=== PATIENT | female | born 1990 | race Caucasian/White ===

== ENCOUNTER 2020-06-02 18:05 | Inpatient (IN) ==
[2020-06-02] MEDS ORDERED: XYLOCAINE 1%/SOD BICARB 20 ML VIAL INFIL ONE (18:50)
--- NOTE | 2020-06-02 19:18 | Emergency Department Note ---
History of Present Illness General Chief complaint: Knee Injury/Pain Stated complaint: left knee swelling Time Seen by Provider: 06/02/20 18:29 Source: patient Mode of arrival: ambulatory Limitations: no limitations History of Present Illness Provider complaint: Left knee swelling Maximum Pain Intensity: 5 This is a 39-year-old female who presents to the ED with a chief complaint of left knee swelling and increased warmth for the past 4 days. She states that she first noticed that on Monday. She was seen Monday at the urgent care and a Lyme test was performed and she was started on doxycycline. The patient did report a tick bite to the lateral aspect of the knee about 5 months ago. The patient states that she did have a fever the past couple of days. She denies any other specific complaints at this time. She did state that she went for a long walk last week. Home Medications Home Medications Medication Instructions Recorded Confirmed Type Chaga 1 tab PO 3XWK 06/02/20 06/02/20 History echinacea 0 mg PO Q OTHER DAY 06/02/20 06/02/20 History ibuprofen 400 mg PO Q6H PRN 06/02/20 06/02/20 History vitamin A 0 unit PO 3XWK 06/02/20 06/02/20 History Allergies Allergy/AdvReac Type Severity Reaction Status Date / Time No Known Allergies Allergy Verified 06/02/20 19:35 Past Med/Surg History Medical History No pertinent past medical history Surgical History No history of previous surgery Family History Father Myocardial infarction, Onset Age: 58 Hypertension Dyslipidemia Mother Afib Aneurysm, Onset Age: 50 SAH with bleed Hypertension Dyslipidemia Grandmother (Maternal) Afib Aneurysm Grandmother (Paternal) Afib Aneurysm Denies family history of Ovarian cancer Prostate cancer Breast cancer Colorectal cancer Social History (System 06/02/20 @ 19:35 by Renuka Alvarez) Smoking Status: Never smoker Age Started Using Tobacco: 22; Age Quit Using Tobacco: 25; Cigarettes Per Day: 2; Hx Alcohol Use: Yes Alcohol type: beer and wine Hx Substance Use: No Preferred Language: Maori Communication Ability: Effective Visual Impairment: No Limitations Hearing Ability: Normal marital status: Current Living Situation: Spouse current occupational status: employed 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[employer] Feels Safe at Home: Yes Childhood Exposure to Second-Hand Smoke: No Dental Care, Regularly: Yes Physical Activity Frequency: 3-4 Times per Week Seatbelt Use: always Sunscreen Use: Yes Do you think of yourself as: straight/heterosexual Review of Systems A total of 10 systems reviewed and were otherwise negative Physical Exam Vital Signs Vital Signs - 24 hr 06/02/20 18:08 06/02/20 20:09 06/02/20 21:26 Temperature 37.3 C Temperature Source Oral Pulse Rate 115 H Pulse Rate [Finger] 77 74 Respiratory Rate 18 16 16 Respiratory Depth Normal Normal Blood Pressure 132/73 Blood Pressure [Right Arm] 109/60 109/65 Blood Pressure Mean 92 Blood Pressure Mean [Right Arm] 76 79 Pulse Oximetry 100 97 96 Oxygen Delivery Method Room Air Room Air Sepsis Recent Fever Within 48 Hours No Sepsis New/Unexplained Change in Mental Status No Sepsis Action Taken by Nursing No Action Required 06/02/20 22:06 Temperature Temperature Source Pulse Rate Pulse Rate [Finger] 78 Respiratory Rate 16 Respiratory Depth Normal Blood Pressure Blood Pressure [Right Arm] 110/62 Blood Pressure Mean Blood Pressure Mean [Right Arm] 78 Pulse Oximetry 98 Oxygen Delivery Method Room Air Sepsis Recent Fever Within 48 Hours Sepsis New/Unexplained Change in Mental Status Sepsis Action Taken by Nursing CONSTITUTIONAL/VITAL SIGNS: Reviewed / noted above. GENERAL: Non-toxic in appearance. INTEGUMENTARY: Warm, dry, and [place]. HEAD: Normocephalic. EYES: without scleral icterus or trauma. ENT/OROPHARYNX: clear and moist. RESPIRATORY: No respiratory distress. CARDIOVASCULAR: Regular rate and rhythm. EXTREMITIES: Warm and well perfused. The patient has moderate left knee effusion as well as warmth. No calf swelling or tenderness. NEUROLOGICAL: Intact without focal deficits. PSYCHIATRIC: normal affect. MUSCULOSKELETAL: Normally developed with good muscle tone. TRIAGE NURSING DOCUMENTATION REVIEWED. Procedures Joint Aspiration/Injection Joint Asp./Inject. 1: Time Out Performed: Yes Side of body: left Joint Aspirated: knee Ultrasound Guidance: No Skin Prep: Povidone-Iodine1% Local Anesthetic: lidocaine 1% Amount of anesthesia used (mL): 5 Needle Size Used: 18G Fluid Obtained: purulent Total fluid obtained (mL): 15 Patient Tolerated Procedure: well Complications: none Course Administered Medications Vancomycin HCl 2,000 mg/ (Sodium Chloride) 540 mls @ 200 mls/hr IV NOW STA Stop: 06/02/20 23:15 Last Admin: 06/02/20 21:59 Dose: 200 mls/hr Documented by: [id number] Discontinued Medications Ceftriaxone Sodium (Rocephin) 2,000 mg in 70 mls @ 140 mls/hr IV NOW STA Stop: 06/02/20 21:03 Last Infusion: 06/02/20 21:55 Dose: 0 mls/hr Documented by: [id number] Admin: 06/02/20 21:25 Dose: 140 mls/hr Documented by: [id number] Ibuprofen (Ibuprofen 600 Mg Tab) 600 mg PO NOW STA Stop: 06/02/20 20:22 Last Admin: 06/02/20 20:26 Dose: 600 mg Documented by: [id number] Lidocaine HCl (Xylocaine 1%/Sod Bicarb 20 Ml Vial) Confirm Administered Dose 20 ml INFIL .STK-MED ONE Stop: 06/02/20 18:51 Last Admin: 06/02/20 18:51 Dose: 20 ml Documented by: [id number] Medical Decision Making Differential Diagnosis Differential includes septic arthritis, Lyme disease, gout, pseudogout, trauma, overuse, osteoarthritis Medical Records Attestation: I reviewed the patient's medical records. Home Medications Current Medication List: was personally reviewed by me Laboratory Data Attestation: I reviewed the patient's lab results. Result diagrams: 06/02/20 20:41 06/02/20 20:41 Lab Results 06/02/20 06/02/20 06/02/20 Range/Units 19:00 20:41 20:41 WBC 4.43 L (4.8-10.8) K/uL RBC 3.50 L (4.2-5.4) M/uL Hgb 10.9 L (12.0-16.0) g/dL Hct 33.2 L (37-47) % MCV 94.9 (80-100) fL MCH 31.1 (25-34) pg MCHC 32.8 (32-36) g/dL RDW Std Deviation 40.5 (36.4-46.3) fL RDW Coeff of Boo 11.9 (11.5-14.5) % Plt Count 246 (130-400) K/uL MPV 9.8 (7.4-10.4) fL Immature Gran % (Auto) 0.2 % Neut % (Auto) 67.9 % Lymph % (Auto) 18.3 % [place] % (Auto) 11.1 % Eos % (Auto) 2.3 % Baso % (Auto) 0.2 % Neut # (Auto) 3.01 (1.4-6.5) K/uL Lymph # (Auto) 0.81 L (1.2-3.4) K/uL [place] # (Auto) 0.49 (0.11-0.59) K/uL Eos # (Auto) 0.10 (0-0.5) K/uL Baso # (Auto) 0.01 (0-0.2) K/uL Immature Gran # (Auto) 0.01 (0.00-0.02) K/uL ESR 72 H (0-21) mm/hr Sodium (136-145) mmol/L Potassium (3.5-5.1) mmol/L Chloride (98-107) mmol/L Carbon Dioxide (21-32) mmol/L Anion Gap (3-11) BUN (7-18) mg/dl Creatinine (0.6-1.2) mg/dl Est Cr Clr Drug Dosing ml/min Est GFR ( Amer) Est GFR (Non-Af Amer) BUN/Creatinine Ratio (10-20) Glucose (70-99) mg/dl Calcium (8.5-10.1) mg/dl Total Bilirubin (0.2-1) mg/dl AST (15-37) U/L ALT (12-78) U/L Alkaline Phosphatase (45-117) U/L Total Protein (6.4-8.2) gm/dl Albumin (3.4-5.0) gm/dl Globulin (2.5-4.0) gm/dl Albumin/Globulin Ratio (0.9-2) Synovial Source KNEE Synovial Color YELLOW Synovial Appearance CLOUDY Synovial WBC 40423 H (0-200) /ul Synovial RBC 4000 /uL Synovial Polynuclear % 96.5 % Synovial Mononuclear % 3.5 % Synovial Specific Grav 1.030 Synovial Glucose 41 mg/dl Synovial Total Protein 5 g/dl Synovial Uric Acid 2.1 mg/dl Lyme Disease IgG Ab (Negative) Lyme Disease IgM Ab (Negative) COVID-19 Eval Order SARS-CoV-2, RNA, NAAT (NEGATIVE) 06/02/20 06/02/20 06/02/20 Range/Units 20:41 20:41 21:24 WBC (4.8-10.8) K/uL RBC (4.2-5.4) M/uL Hgb (12.0-16.0) g/dL Hct (37-47) % MCV (80-100) fL MCH (25-34) pg MCHC (32-36) g/dL RDW Std Deviation (36.4-46.3) fL RDW Coeff of Boo (11.5-14.5) % Plt Count (130-400) K/uL MPV (7.4-10.4) fL Immature Gran % (Auto) % Neut % (Auto) % Lymph % (Auto) % [place] % (Auto) % Eos % (Auto) % Baso % (Auto) % Neut # (Auto) (1.4-6.5) K/uL Lymph # (Auto) (1.2-3.4) K/uL [place] # (Auto) (0.11-0.59) K/uL Eos # (Auto) (0-0.5) K/uL Baso # (Auto) (0-0.2) K/uL Immature Gran # (Auto) (0.00-0.02) K/uL ESR (0-21) mm/hr Sodium 138 (136-145) mmol/L Potassium 3.8 (3.5-5.1) mmol/L Chloride 104 (98-107) mmol/L Carbon Dioxide 27 (21-32) mmol/L Anion Gap 8.0 (3-11) BUN 9 (7-18) mg/dl Creatinine 0.62 (0.6-1.2) mg/dl Est Cr Clr Drug Dosing 146.1 ml/min Est GFR ( Amer) 142.2 Est GFR (Non-Af Amer) 122.7 BUN/Creatinine Ratio 14.4 (10-20) Glucose 100 H (70-99) mg/dl Calcium 9.5 (8.5-10.1) mg/dl Total Bilirubin 0.3 (0.2-1) mg/dl AST 21 (15-37) U/L ALT 27 (12-78) U/L Alkaline Phosphatase 47 (45-117) U/L Total Protein 7.1 (6.4-8.2) gm/dl Albumin 2.9 L (3.4-5.0) gm/dl Globulin 4.2 H (2.5-4.0) gm/dl Albumin/Globulin Ratio 0.7 L (0.9-2) Synovial Source Synovial Color Synovial Appearance Synovial WBC (0-200) /ul Synovial RBC /uL Synovial Polynuclear % % Synovial Mononuclear % % Synovial Specific Grav Synovial Glucose mg/dl Synovial Total Protein g/dl Synovial Uric Acid mg/dl Lyme Disease IgG Ab Positive A (Negative) Lyme Disease IgM Ab Positive A (Negative) COVID[facility]19 [facility] SARS-CoV-2, RNA, NAAT (NEGATIVE) 06/02/20 Range/Units 21:24 WBC (4.8-10.8) K/uL RBC (4.2-5.4) M/uL Hgb (12.0-16.0) g/dL Hct (37-47) % MCV (80-100) fL MCH (25-34) pg MCHC (32-36) g/dL RDW Std Deviation (36.4-46.3) fL RDW Coeff of Boo (11.5-14.5) % Plt Count (130-400) K/uL MPV (7.4-10.4) fL Immature Gran % (Auto) % Neut % (Auto) % Lymph % (Auto) % [place] % (Auto) % Eos % (Auto) % Baso % (Auto) % Neut # (Auto) (1.4-6.5) K/uL Lymph # (Auto) (1.2-3.4) K/uL [place] # (Auto) (0.11-0.59) K/uL Eos # (Auto) (0-0.5) K/uL Baso # (Auto) (0-0.2) K/uL Immature Gran # (Auto) (0.00-0.02) K/uL ESR (0-21) mm/hr Sodium (136-145) mmol/L Potassium (3.5-5.1) mmol/L Chloride (98-107) mmol/L Carbon Dioxide (21-32) mmol/L Anion Gap (3-11) BUN (7-18) mg/dl Creatinine (0.6-1.2) mg/dl Est Cr Clr Drug Dosing ml/min Est GFR ( Amer) Est GFR (Non-Af Amer) BUN/Creatinine Ratio (10-20) Glucose (70-99) mg/dl Calcium (8.5-10.1) mg/dl Total Bilirubin (0.2-1) mg/dl AST (15-37) U/L ALT (12-78) U/L Alkaline Phosphatase (45-117) U/L Total Protein (6.4-8.2) gm/dl Albumin (3.4-5.0) gm/dl Globulin (2.5-4.0) gm/dl Albumin/Globulin Ratio (0.9-2) Synovial Source Synovial Color Synovial Appearance Synovial WBC (0-200) /ul Synovial RBC /uL Synovial Polynuclear % % Synovial Mononuclear % % Synovial Specific Grav Synovial Glucose mg/dl Synovial Total Protein g/dl Synovial Uric Acid mg/dl Lyme Disease IgG Ab (Negative) Lyme Disease IgM Ab (Negative) COVID-19 Eval Order SARS-CoV-2, RNA, NAAT NEGATIVE (NEGATIVE) MDM Narrative The patient presents with left knee pain as well as a left knee effusion for the past 4 days or so. She was started on doxycycline on Monday by urgent care with the suspicion of possible Lyme disease. She presents today at the advice of her PCP for further evaluation. She denies any direct trauma. She has had some fevers and chills. The patient's synovial fluid revealed a white blood cell count of 92,000. Her CBC and chemistry panel was unremarkable. Lyme test was positive. The patient was seen by orthopedics for further inpatient evaluation and care. 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 Patient Disposition: Admitted As Inpatient Discharge Instructions Interventions: ED Discharge Assessment Last Done: 06/02/20 22:07 Forms Stand Alone Forms: [employer] Prescriptions Prescriptions: No Action vitamin A 8,000 unit Capsule 0 unit PO 3XWK RF: 0 ibuprofen 200 mg Tablet 400 mg PO Q6H PRN (Reason: Pain) RF: 0 echinacea 125 mg Capsule 0 mg PO Q OTHER DAY RF: 0 Chaga 1 tab PO 3XWK RF: 0 Referrals Referrals: Sundeep Stevens III, CRNP [Primary Care Provider] - Discharge Problem: Septic arthritis of knee Qualifiers: Septic arthritis organism: due to unspecified organism Laterality: left Qualified Code(s): M00.9 - Pyogenic arthritis, unspecified
[2020-06-02] MEDS ORDERED: IBUPROFEN 600 MG TAB PO STA (20:21)
[2020-06-02 20:25] LABS: Appearance Synovial Fluid CLOUDY; Color Synovial Fluid YELLOW; Mononuclear WBC Synovial 3.5 %; Polynuclear WBC Synovial 96.5 %; RBC Synovial Fluid (A) 4000 /uL; Source Synovial Fluid KNEE; WBC Synovial Fluid (A) 92532 /ul (0-200)
[2020-06-02] MEDS ORDERED: cefTRIAXone SODIUM 2,000 MG/70 ML BAG IV STA (20:34)
[2020-06-02] MEDS ORDERED: VANCOMYCIN CONSULT ACTIVE PRN (20:34)
[2020-06-02] MEDS ORDERED: VANCOMYCIN HCL 2,000 MG in SODIUM CHLORIDE 0.9% 500 ML IV STA (20:34)
[2020-06-02 20:51] LABS: Glucose Synovial Fluid 41 mg/dl; Total Protein Synovial Fluid 5 g/dl; Uric Acid Synovial Fluid 2.1 mg/dl
[2020-06-02 21:04] LABS: Basophils # (auto) 0.01 K/uL (0-0.2); Basophils % (auto) 0.2 %; Eosinophils % (auto) 2.3 %; Hematocrit (blood only) 33.2 % (37-47); Hemoglobin 10.9 g/dL (12.0-16.0); Immature Granulocytes # (auto) 0.01 K/uL (0.00-0.02); Immature Granulocytes % (auto) 0.2 %; Lymphocytes # (auto) 0.81 K/uL (1.2-3.4); Lymphocytes % (auto) 18.3 %; Mean Corpuscular Hemoglobin 31.1 pg (25-34); Mean Corpuscular Hgb Conc 32.8 g/dL (32-36); Mean Corpuscular Volume 94.9 fL (80-100); Mean Platelet Volume 9.8 fL (7.4-10.4); Monocytes # (auto) 0.49 K/uL (0.11-0.59); Monocytes % (auto) 11.1 %; Neutrophils # (auto) 3.01 K/uL (1.4-6.5); Neutrophils % (auto) 67.9 %; Platelet Count 246 K/uL (130-400); RDW Coefficient of Variation 11.9 % (11.5-14.5); RDW Standard Deviation 40.5 fL (36.4-46.3); White Blood Count 4.43 K/uL (4.8-10.8)
--- NOTE | 2020-06-02 21:04 | Anesthesiology Consultation ---
Date of Service June 02, 2020 Assessment & Plan (1) Encounter for pre-operative examination: Chart Review Chart Review: Acceptable Risk for Surgery and Patient NOT seen in Pre Admission Testing Consults Requested none ASA [id number] Proposed Anesthesia Anesthesia Type: General Risk / Benefits Reviewed With: PT / POA / Parent / Guardian, Accepts Plan and Informed Consent Obtained History Surgery Operation Date: 06/02/20 21:30 Proposed Procedures p Arthroscopy Knee - Jose Arreguin MD Height/Weight Height: 5 ft 10 in Weight: 68.5 kg Allergies Allergy/AdvReac Type Severity Reaction Status Date / Time No Known Allergies Allergy Verified 06/02/20 19:35 Medications Home Medications Medication Instructions Recorded Confirmed Last Taken Chaga 1 tab PO 3XWK 06/02/20 06/02/20 Unknown echinacea 0 mg PO Q OTHER DAY 06/02/20 06/02/20 Unknown ibuprofen 400 mg PO Q6H PRN 06/02/20 06/02/20 Unknown vitamin A 0 unit PO 3XWK 06/02/20 06/02/20 Unknown Active Medications Generic Name Dose Route Start Last Admin Trade Name Freq PRN Reason Stop Dose Admin Vancomycin HCl 2,000 mg/ 540 mls @ 200 mls/hr 06/02/20 20:34 06/02/20 21:59 Sodium Chloride IV 06/02/20 23:15 200 mls/hr NOW STA Administration NPO Date Last Intake of Fluids: 06/02/20 Time Last Intake of Fluids: 19:00 Date Last Intake of Solids: 06/02/20 Time Last Intake of Solids: 16:00 Past Medical History Medical History No pertinent past medical history Exercise / Class Metabolic Activity II 4-5 Yardwork/Stairs/Walk up hill Past Family History Family History Father Myocardial infarction, Onset Age: 58 Hypertension Dyslipidemia Mother Afib Aneurysm, Onset Age: 50 SAH with bleed Hypertension Dyslipidemia Grandmother (Maternal) Afib Aneurysm Grandmother (Paternal) Afib Aneurysm Denies family history of Ovarian cancer Prostate cancer Breast cancer Colorectal cancer Past Surgical History Surgical History No history of previous surgery Past Anesthesia History No Hx of Anesthesia Complications and No Family Hx of Anesthesia Complications History of PONV No Hx of PONV and History of PONV Social History Smoking Status: Never smoker tobacco type: cigarettes Smoking cigarettes per day: 2 Hx Alcohol Use: Yes Alcohol type: beer and wine Hx Substance Use: No Review of Systems Patient denies active symptoms of GERD. Negative for chest pain or shortness of breath. Denies N/V Physical Exam Vital Signs Last Vital Signs Temp 37.3 C 06/02/20 18:08 Pulse 78 06/02/20 22:06 Resp 16 06/02/20 22:06 BP 110/62 06/02/20 22:06 Pulse Ox 98 06/02/20 22:06 Constitutional not obese ENMT Mouth: no TMJ abnormality and oral opening not small Thyromental Distance: > or= 3.5 Finger Breadths Mallampati Class: I Neck normal visual inspection; neck extension not limited Respiratory normal respiratory effort Auscultation: lungs clear to auscultation bilaterally Cardiovascular Rate/Rhythm: regular rate and regular rhythm Heart Sounds: no murmur Neurologic moves all extremities Psychiatric Orientation: alert and oriented x 3 Testing Laboratory Results 06/02/20 20:41 06/02/20 20:41 06/02/20 19:00 Gram Stain - Final Knee
[2020-06-02 21:21] LABS: Albumin Level 2.9 gm/dl (3.4-5.0); BUN Creatinine Ratio 14.4 (10-20); Calcium 9.5 mg/dl (8.5-10.1); Creatinine Clr Calc Pharmacy 146.1 ml/min; Est GFR (African American) 142.2; Est GFR (Non-African American) 122.7; Potassium 3.8 mmol/L (3.5-5.1)
[2020-06-02 21:24] LABS: Albumin Globulin Ratio 0.7 (0.9-2); Bilirubin,Total 0.3 mg/dl (0.2-1); Globulin 4.2 gm/dl (2.5-4.0); Total Protein 7.1 gm/dl (6.4-8.2)
--- NOTE | 2020-06-02 21:43 | Orthopedic Consultation ---
Date of Consultation June 02, 2020 Assessment & Plan (1) Septic arthritis of knee: The patient began having pain in the knee on Monday. She was treated empirically for Lyme disease as she had had a tick bite on this left knee about 5 months ago. She has continued to have increasing pain and swelling in the knee. The knee is now red hot and swollen. She has been febrile and now currently has chills. Aspirate with for yellow cloudy fluid of 92,000 white cells. The clinical picture is more of a bacterial septic arthritis versus a Lyme arthritis. Typically with Lyme arthritis the white blood cell count is not this high. They also usually do not get fevers and chills nor do they get a red hot knee. Typically the knee is without pain, usually not warm but with an effusion and the white blood cell count tends to be less than 50,000. My concern is that even if she tests positive for Lyme's disease, with her clinical picture this seems more like a bacterial septic arthritis. The treatment for that would be operative irrigation and debridement on a more urgent basis. My plan is for an arthroscopic irrigation debridement of the left knee. Cultures were obtained from the fluid that was taken from her knee at the emergency room. We will await those cultures as well as take additional cultures in the operating room. We will dictate our long-term antibiotic treatment based on those cultures. The risks, benefits, alternatives of surgery including but not limited to pain, stiffness, DVT, continued infection, need for revision surgery, damage to blood vessels, damage to nerves, risk of anesthesia were discussed with the patient and she wishes to proceed. 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 She started having pain and swelling in the left knee on Monday. She is seen in urgent care. She has a history of a tick bite on the lateral aspect of this knee about 5 months ago. A Lyme titer was obtained and she was started on doxycycline. She continued to have pain and swelling in the knee. She has developed fevers and chills. The knee is now red hot and swollen. The knee was aspirated by Dr. Vick for yellow cloudy fluid. The analysis demonstrates 92,000 white blood cells. She has pain with ambulation and pain with range of motion. Allergies Allergy/AdvReac Type Severity Reaction Status Date / Time No Known Allergies Allergy Verified 06/02/20 19:35 Home Medications Home Medications Medication Instructions Recorded Confirmed Type Chaga 1 tab PO 3XWK 06/02/20 06/02/20 History echinacea 0 mg PO Q OTHER DAY 06/02/20 06/02/20 History ibuprofen 400 mg PO Q6H PRN 06/02/20 06/02/20 History vitamin A 0 unit PO 3XWK 06/02/20 06/02/20 History Patient History Medical History No pertinent past medical history Surgical History No history of previous surgery Family History Father Myocardial infarction, Onset Age: 58 Hypertension Dyslipidemia Mother Afib Aneurysm, Onset Age: 50 SAH with bleed Hypertension Dyslipidemia Grandmother (Maternal) Afib Aneurysm Grandmother (Paternal) Afib Aneurysm Denies family history of Ovarian cancer Prostate cancer Breast cancer Colorectal cancer Social History (System 06/02/20 @ 19:35 by Renuka Alvarez) Smoking Status: Never smoker Age Started Using Tobacco: 22; Age Quit Using Tobacco: 25; Cigarettes Per Day: 2; Hx Alcohol Use: Yes Alcohol type: beer and wine Hx Substance Use: No Preferred Language: Danish Communication Ability: Effective Visual Impairment: No Limitations Hearing Ability: Normal marital status: Current Living Situation: Spouse current occupational status: employed 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 She holds it in a slightly flexed position. There is significant erythema and warmth to the knee. She can flex it to approximately 80 degrees but limited by pain and swelling. Tender to palpation throughout the knee. No tenderness palpation of calf. No pain with range of motion at the hip. Light touch sensation is intact distally 2+ dorsalis pedis pulse. Motor function is intact distally Results & Data ([facility]) Vital Signs (Past 12 Hours) Vital Signs Temp Pulse Pulse Resp BP BP Pulse Ox 06/02/20 21:26 74 16 109/65 96 06/02/20 20:09 77 16 109/60 97 06/02/20 18:08 37.3 C 115 H 18 132/73 100
[2020-06-02] MEDS ORDERED: ONDANSETRON INJ 2 MG/ML 2 ML VIAL ONE (21:52)
[2020-06-02] MEDS ORDERED: LIDOCAINE HCL 2% 2 ML VIAL/AMP(20MG/ML) INFIL ONE (21:52)
[2020-06-02] MEDS ORDERED: SUCCINYLCHOLINE CHLORIDE 20 MG/ML 10 ML VIAL IV ONE (21:52)
[2020-06-02] MEDS ORDERED: DEXAMETHASONE SOD INJ 4 MG/ML VIAL ONE (21:52)
[2020-06-02] MEDS ORDERED: PROPOFOL IV EMULSION 10 MG/ML 20 ML VIAL IV ONE (21:52)
[2020-06-02] MEDS ORDERED: ROCURONIUM BROMIDE 10 MG/ML 5 ML VIAL IV ONE (21:52)
--- NOTE | 2020-06-02 21:53 | History & Physical Report ---
Date of Service June 02, 2020 Assessment & Plan (1) Septic arthritis of knee: The patient began having pain in the knee on Monday. She was treated empirically for Lyme disease as she had had a tick bite on this left knee about 5 months ago. She has continued to have increasing pain and swelling in the knee. The knee is now red hot and swollen. She has been febrile and now currently has chills. Aspirate with for yellow cloudy fluid of 92,000 white cells. The clinical picture is more of a bacterial septic arthritis versus a Lyme arthritis. Typically with Lyme arthritis the white blood cell count is not this high. They also usually do not get fevers and chills nor do they get a red hot knee. Typically the knee is without pain, usually not warm but with an effusion and the white blood cell count tends to be less than 50,000. My concern is that even if she tests positive for Lyme's disease, with her clinical picture this seems more like a bacterial septic arthritis. The treatment for that would be operative irrigation and debridement on a more urgent basis. My plan is for an arthroscopic irrigation debridement of the left knee. Cultures were obtained from the fluid that was taken from her knee at the emergency room. We will await those cultures as well as take additional cultures in the operating room. We will dictate our long-term antibiotic treatment based on those cultures. The risks, benefits, alternatives of surgery including but not limited to pain, stiffness, DVT, continued infection, need for revision surgery, damage to blood vessels, damage to nerves, risk of anesthesia were discussed with the patient and she wishes to proceed. 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 She started having pain and swelling in the left knee on Monday. She is seen in urgent care. She has a history of a tick bite on the lateral aspect of this knee about 5 months ago. A Lyme titer was obtained and she was started on doxycycline. She continued to have pain and swelling in the knee. She has developed fevers and chills. The knee is now red hot and swollen. The knee was aspirated by Dr. Vick for yellow cloudy fluid. The analysis demonstrates 92,000 white blood cells. She has pain with ambulation and pain with range of motion. Allergies Allergy/AdvReac Type Severity Reaction Status Date / Time No Known Allergies Allergy Verified 06/02/20 19:35 Home Medications Home Medications Medication Instructions Recorded Confirmed Type Chaga 1 tab PO 3XWK 06/02/20 06/02/20 History echinacea 0 mg PO Q OTHER DAY 06/02/20 06/02/20 History ibuprofen 400 mg PO Q6H PRN 06/02/20 06/02/20 History vitamin A 0 unit PO 3XWK 06/02/20 06/02/20 History Past Med/Surg History Medical History No pertinent past medical history Surgical History No history of previous surgery Family History Father Myocardial infarction, Onset Age: 58 Hypertension Dyslipidemia Mother Afib Aneurysm, Onset Age: 50 SAH with bleed Hypertension Dyslipidemia Grandmother (Maternal) Afib Aneurysm Grandmother (Paternal) Afib Aneurysm Denies family history of Ovarian cancer Prostate cancer Breast cancer Colorectal cancer Social History (System 06/02/20 @ 19:35 by Renuka Alvarez) Smoking Status: Never smoker Age Started Using Tobacco: 22; Age Quit Using Tobacco: 25; Cigarettes Per Day: 2; Hx Alcohol Use: Yes Alcohol type: beer and wine Hx Substance Use: No Preferred Language: Pashto Communication Ability: Effective Visual Impairment: No Limitations Hearing Ability: Normal marital status: Current Living Situation: Spouse current occupational status: employed 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 She holds it in a slightly flexed position. There is significant erythema and warmth to the knee. She can flex it to approximately 80 degrees but limited by pain and swelling. Tender to palpation throughout the knee. No tenderness palpation of calf. No pain with range of motion at the hip. Light touch sensation is intact distally 2+ dorsalis pedis pulse. Motor function is intact distally Results & Data Results & Data ([facility]) Vital Signs (Past 12 Hours) Vital Signs Temp Pulse Pulse Resp BP BP Pulse Ox 06/02/20 21:26 74 16 109/65 96 06/02/20 20:09 77 16 109/60 97 06/02/20 18:08 37.3 C 115 H 18 132/73 100
[2020-06-02 21:57] LABS: Lyme Ab IgG w/WB Rflx Positive (Negative); Lyme Ab IgM w/WB Rflx Positive (Negative)
[2020-06-02] MEDS ORDERED: MIDAZOLAM HCL 1 MG/ML 2ML VIAL ONE (21:57)
[2020-06-02] MEDS ORDERED: fentaNYL citrate 100 MCG/2 ML VIAL ONE ×2 (21:57→23:27)
[2020-06-02] MEDS ORDERED: SCOPOLAMINE 1.5 MG TDSY TD ONE (22:40)
[2020-06-02] MEDS ORDERED: ONDANSETRON INJ 2 MG/ML 2 ML VIAL IV PRN (22:46)
[2020-06-02] MEDS ORDERED: ATROPINE SULFATE 0.1 MG/ML 10ML SYR IV PRN (22:46)
[2020-06-02] MEDS ORDERED: PROMETHAZINE HCL 12.5 MG in SODIUM CHLORIDE 0.9% 50 ML IV PRN (22:46)
[2020-06-02] MEDS ORDERED: ePHEDrine sulfate 50 MG/ML AMP IV PRN (22:46)
[2020-06-02 22:53] LABS: Pregnancy Test, Urine Negative (Negative)
[2020-06-02] MEDS ORDERED: BUPIVACAINE/EPINEPHRINE 0.25% 1:200,000 30 ML VIAL ONE (23:13)
[2020-06-02] MEDS ORDERED: ePHEDrine sulfate 50 MG/ML SYR ONE (23:17)
[2020-06-02] MEDS ORDERED: ePHEDrine sulfate 50 MG/ML AMP ONE (23:17)
--- NOTE | 2020-06-02 23:55 | Operative Report ---
Post Operative Report Pre & Post Diagnosis Operation Date: 06/02/20 21:30 Pre-Op Diagnosis: Septic Left Knee Post-Op Diagnosis: Septic Left Knee I identified the patient and participated in the time-out.: Yes Procedure Operation Date: 06/02/20 21:30 Actual Procedures p Left Knee Arthroscopy Irrigation and Debridement(Left) - Jose Arreguin MD Surgeon Jose Arreguin MD Visual Training Aide None Estimated Blood Loss 5 Findings Consistent with Post-Op Diagnosis Specimens Cultures and Gram stain Drains 1 Hemovac Anesthesia Type General Complications none Disposition Accompanied Patient To Recovery: No Disposition: Recovery Room Indications The patient is a 29-year-old female who is been having increasing pain redness and swelling of the left knee. She initially was being treated for Lyme's disease. However she is had increasing pain red hot swollen knee with aspirate demonstrating 92,000 white blood cells. Given this clinical picture this appears to be more likely a bacterial septic arthritis which requires more urgent surgical irrigation and debridement. She wishes to proceed with arthroscopy Description of Procedure Risks, benefits and alternatives to surgery including, but not limited to, infection, DVT, pain, stiffness, need for revision surgery, failure to relieve all symptoms, damage to blood vessels, damage to nerves, risk of the anesthesia were discussed with the patient and they wished to proceed. The patient was identified. Laterality was confirmed and marked. The patient received a preoperative antibiotic. They were transferred to the operating room and placed in supine position and induced into general endotracheal anesthesia per the anesthesia staff. A well-padded tourniquet was placed on the thigh and the limb was prepped and draped in the usual standard manner with ChloraPrep. The limb was exsanguinated with gravity and the tourniquet was inflated. I made a standard anterolateral viewing portal made through a stab incision and bluntly entered the suprapatellar pouch. Then under spinal needle localization I established an anteromedial portal. About 30 cc of purulent appearing material was expressed. This was sent for cultures. There was a fair amount of erythema throughout the synovium particularly in the suprapatellar pouch. There was also some purulent appearing material in the suprapatellar pouch. I performed a complete irrigation debridement utilizing 12 L of saline utilizing arthroscopic shaver for the debridement. I utilized the shaver to perform a complete synovectomy. I then a 2 drain within the joint exiting out the lateral portal of the knee. The portal sites were closed with nylon. A sterile dressing was applied and the tourniquet was released. All needle and sponge counts were correct at the end of the procedure. The patient was transferred to the PACU in stable condition without apparent complication. I attest to the content of the Intraoperative Record and any orders documented therein. Any exceptions are noted below.
[2020-06-03] MEDS ORDERED: METOCLOPRAMIDE HCL INJ 5 MG/ML 2 ML VIAL IV PRN (00:04)
[2020-06-03] MEDS ORDERED: MAGNESIUM HYDROXIDE SUSP 30 ML UDC PO PRN (00:04)
[2020-06-03] MEDS ORDERED: NALOXONE HCL 0.4 MG/1 ML VIAL/CARP IV PRN (00:04)
[2020-06-03] MEDS ORDERED: HYDROmorphone INJ 0.5 MG/0.5 ML SYR IV PRN (00:04)
[2020-06-03] MEDS ORDERED: ONDANSETRON INJ 2 MG/ML 2 ML VIAL IV PRN (00:04)
[2020-06-03] MEDS ORDERED: bisacodyL 10 MG SUPP PR PRN (00:04)
[2020-06-03] MEDS ORDERED: VANCOMYCIN CONSULT ACTIVE PRN (00:10)
[2020-06-03] MEDS ORDERED: HYDROmorphone INJ 1 MG/ML SYRINGE IV PRN (00:19)
[2020-06-03] MEDS ORDERED: fentaNYL citrate 100 MCG/2 ML VIAL ONE (00:24)
[2020-06-03] MEDS: fentaNYL citrate 100 MCG/2 ML VIAL IV PRN ×2 (00:28→00:50)
[2020-06-03] MEDS ORDERED: DiphenhydrAMINE HCL 50 MG/ML VIAL IV STA (00:43)
--- NOTE | 2020-06-03 01:08 | Anesthesiology Progress Note ---
Date of Service June 03, 2020 Anesthesia Post Procedure Vital Signs Vital Signs: Temp Pulse Pulse Resp BP BP Pulse Ox 06/03/20 01:05 63 16 96/50 L 94 06/03/20 00:55 36.5 C 60 16 99/58 L 95 06/03/20 00:45 70 16 99/59 L 96 06/03/20 00:35 36.5 C 69 18 112/66 96 06/03/20 00:25 80 18 103/68 99 06/03/20 00:15 36.5 C 78 18 116/66 100 06/02/20 22:06 78 16 110/62 98 06/02/20 21:26 74 16 109/65 96 06/02/20 20:09 77 16 109/60 97 06/02/20 18:08 37.3 C 115 H 18 132/73 100 Pain Intensity Left Knee: Pain Intensity: 7 Transfer of Care Handoff Completed per policy Notes Mental Status: alert / awake / arousable and participated in evaluation Patient Amnestic to Procedure: Yes Nausea / Vomiting: adequately controlled Pain: adequately controlled Airway Patency, RR, SpO2: stable & adequate BP & HR: stable & adequate Hydration State: stable & adequate Anesthetic Complications: no major complications apparent and Pt Satisfied with anesthetic care
[2020-06-03 01:38] LABS: Appearance Synovial Fluid CLOUDY; Color Synovial Fluid YELLOW; Mononuclear WBC Synovial 3.3 %; Polynuclear WBC Synovial 96.7 %; RBC Synovial Fluid (A) 15000 /uL; Source Synovial Fluid KNEE; WBC Synovial Fluid (A) 105200 /ul (0-200)
[2020-06-03] MEDS: SODIUM CHLORIDE 0.9% 1000ML 1,000 ML IV SCH ×2 (01:39→12:35)
[2020-06-03] MEDS: KETOROLAC TROMETHAMINE 15 MG/ML VIAL IV PRN ×3 (01:48→23:54)
--- NOTE | 2020-06-03 03:53 | Consultation Report ---
DATE OF CONSULTATION: 06/03/2020 CHIEF COMPLAINT: Left knee septic arthritis. HISTORY OF PRESENT ILLNESS: This is a 29-year-old female who presents with left knee septic arthritis, status post I and D. She tolerated the procedure okay. Resting comfortably and hemodynamically stable. The patient has a tick bite on the left knee about 5 months ago, but as the tick was there less than 24 hours she has not checked for lyme.But she started to have inflammation of the left knee and pain and fever for the last few days and she was checked for Lyme and it was positive and she was started on doxycycline, but as the swelling was getting worse seen b ortho and was found to have septic arthritis. She is status post I and D today. She was started on vancomycin and Rocephin by the orthopedics. She has a slight rash with vancomycin that got resolved. Denies any chest pain or shortness of breath. No cough, no nausea, no abdominal pain, no headache, no blurred vision, no earache, no runny nose, no sore throat. Currently hemodynamically stable. ALLERGIES: No known drug allergies. PAST MEDICAL HISTORY: As mentioned above. PAST SURGICAL HISTORY: None. FAMILY HISTORY: Father has hypertension, heart disease. Mother had a brain aneurysm. SOCIAL HISTORY: No smoking. Alcohol rarely. REVIEW OF SYMPTOMS: As per HPI. Rest of the systems negative. PHYSICAL EXAMINATION: GENERAL: The patient is of moderate build, not in acute distress. VITAL SIGNS: Temperature 36.7, pulse 58, respiratory rate 16, blood pressure 99/57, oxygen 97% on room air. HEENT: Head atraumatic. NECK: Supple, no neck masses seen. CARDIOVASCULAR: S1, S2 heard, regular rate and rhythm, no murmur, no gallop. RESPIRATORY SYSTEM: Normal AP diameter. No accessory muscle use. No wheezing, no crackles. ABDOMEN: Soft, bowel sounds present, nontender. No distention. CENTRAL NERVOUS SYSTEM: Alert and oriented. Speech clear. Moves extremities. EXTREMITIES: Status post left knee I and D. LABORATORY DATA: WBC 4.4, hemoglobin 10.9, hematocrit 33.2, platelets 246. Sodium 138, potassium 3.8, chloride 104, bicarbonate 27, BUN 9, creatinine 0.6, serum glucose 100, calcium 9.5, total bilirubin 0.3, AST 21, ALT 27, alkaline phosphatase 47. Urine test is negative. Synovial fluids. [id number]. Lyme screen IgG positive, IgM positive. ASSESSMENT AND PLAN: This is a 29-year-old female who presents with left knee septic arthritis.Bacterial versus Lyme arthritis, mostly bacterial complicating it because of much elevated white count in synovial fluid and fever, started on vancomycin and Rocephin. Follow the cultures. Duration of antibiotics by Orthopedics, may need to follow with ID for Lyme disease, probiotics. Deep venous thrombosis prophylaxis and disposition as per Orthopedics. MTDD
[2020-06-03 06:16] LABS: Hematocrit (blood only) 32.9 % (37-47); Hemoglobin 10.9 g/dL (12.0-16.0); Mean Corpuscular Hemoglobin 31.4 pg (25-34); Mean Corpuscular Hgb Conc 33.1 g/dL (32-36); Mean Corpuscular Volume 94.8 fL (80-100); Mean Platelet Volume 10.1 fL (7.4-10.4); Platelet Count 212 K/uL (130-400); RDW Coefficient of Variation 11.9 % (11.5-14.5); RDW Standard Deviation 40.7 fL (36.4-46.3); Red Blood Count 3.47 M/uL (4.2-5.4); White Blood Count 2.24 K/uL (4.8-10.8)
[2020-06-03 06:56] LABS: BUN Creatinine Ratio 21.4 (10-20); Blood Urea Nitrogen 11 mg/dl (7-18); Calcium 8.6 mg/dl (8.5-10.1); Carbon Dioxide 26 mmol/L (21-32); Chloride 109 mmol/L (98-107); Creatinine Clr Calc Pharmacy 167.4 ml/min; Est GFR (African American) > 150.0; Est GFR (Non-African American) 131.7; Glucose 147 mg/dl (70-99); Potassium 4.5 mmol/L (3.5-5.1); Sodium 140 mmol/L (136-145)
--- NOTE | 2020-06-03 07:18 | XRay Report ---
LEFT KNEE 2 VIEWS CLINICAL HISTORY: Septic knee. FINDINGS: AP and crosstable lateral views of the left knee are obtained. No prior studies are availab le for comparison at the time of dictation. The skeletal structures are well mineralized. No fracture is seen. There is no bony erosion or periostitis. The joint spaces are maintained. There is a large joint effusion. Soft tissue edema is present around the knee. IMPRESSION: Large joint effusion and soft tissue edema with no acute bony abnormality identified. Electronically signed by: Tor Avalos M.D. 06/03/2020 7:17 AM
--- NOTE | 2020-06-03 09:08 | Pharmacy Report ---
Pharmacy Abx Initial Consult - Date of Service June 03, 2020 - Pharmacy Dosing Scope Date of Consult: 06/02/20 Consultation requested by: Dr. Arreguin Pharmacy is consulted to initiate vancomycin IV dosing therapy, order appropriate labs and adjust drug dose/frequency. - Subjective The patient is a 29 year old F admitted on 06/03/20 00:04. - Objective Height: 5 ft 10 in Weight: 63.3 kg Vital Signs (Past 12hrs): Vital Signs Temp Pulse Resp BP Pulse Ox 06/03/20 07:43 36.6 C 67 14 98/58 L 98 06/03/20 04:20 36.6 C 55 L 16 99/62 L 97 06/03/20 03:15 36.4 C L 58 L 16 107/65 99 06/03/20 02:16 36.7 C 58 L 16 99/57 L 97 06/03/20 01:45 36.6 C 61 18 99/62 L 96 06/03/20 01:10 36.8 C 61 18 101/65 95 06/03/20 01:05 63 16 96/50 L 94 06/03/20 00:55 36.5 C 60 16 99/58 L 95 06/03/20 00:45 70 16 99/59 L 96 06/03/20 00:35 36.5 C 69 18 112/66 96 06/03/20 00:25 80 18 103/68 99 06/03/20 00:15 36.5 C 78 18 116/66 100 06/02/20 22:06 78 16 110/62 98 06/02/20 21:26 74 16 109/65 96 Lab Results (24hrs): Laboratory Tests (24 Hours) 06/03/20 06/03/20 06/02/20 05:56 05:56 20:41 WBC 2.24 L Neut # (Auto) ESR Creatinine 0.50 L 0.62 Est Cr Clr Drug Dosing 167.4 146.1 06/02/20 06/02/20 20:41 20:41 WBC 4.43 L Neut # (Auto) 3.01 ESR 72 H Creatinine Est Cr Clr Drug Dosing Micro Results: 06/03/20 00:25 Gram Stain - Final Knee,Left Aerobic and Anaerobic Culture - Pending 06/03/20 00:25 Gram Stain - Final Knee,Left Aerobic and Anaerobic Culture - Pending 06/03/20 00:25 Gram Stain - Final Knee,Left Aerobic and Anaerobic Culture - Pending 06/02/20 21:01 Aerobic Blood Culture - Pending Blood Anaerobic Blood Culture - Pending 06/02/20 20:41 Aerobic Blood Culture - Pending Blood Anaerobic Blood Culture - Pending 06/02/20 19:00 Gram Stain - Final Knee Aerobic and Anaerobic Culture - Pending - Assessment & Plan Assessment 29 year old F ordered empiric vancomycin and ceftriaxone for treatment of suspected bacterial septic arthritis (vs. lyme arthritis). Patient had a tick bite on left knee approximately 5 months ago. On presentation to ED on 06/02, patient with increasing pain and swelling of left knee, as well as fever and chills. S/P I&D yesterday. Synovial fluid aspirate revealed 92,000 WBCs, cultures obtained and pending. No leukocytosis otherwise, has been afebrile while hospitalized, renal function intact, slightly hypotensive. 06/02: blood x 2: pending 06/02: knee pending 06/03: left knee pending Plan Vancomycin IV * Vd: 0.7 L/kg, Ke: > 0.104 hr-1, t1/2: < 6.6 hrs * Loading dose: 2000 mg (29 mg/kg) * Maintenance dose: 1250 mg IV (18 mg/kg) every 8 hours * Goal trough level for septic arthritis : 15 to 20 mcg/mL * Will obtain vancomycin trough tomorrow morning prior to 5th dose of vancomycin Ceftriaxone IV * 2 g IV q24h appropriate - will cover lyme disease Pharmacy will continue to follow and will adjust dose/frequency as necessary. Thank you.
[2020-06-03] MEDS: VANCOMYCIN HCL 1,250 MG in SODIUM CHLORIDE 0.9% 250 ML IV SCH ×3 (09:23→23:55)
[2020-06-03] MEDS: MULTIVITAMIN TAB PO SCH (09:23)
[2020-06-03] MEDS: LACTOBACILLUS ACIDOPHILUS (FLORANEX) TAB PO SCH ×5 (09:23→20:45)
[2020-06-03] MEDS: DOCUSATE SODIUM 100 MG CAP PO SCH ×2 (09:23→20:45)
--- NOTE | 2020-06-03 10:06 | Orthopedic Progress Note ---
Date of Service June 03, 2020 Assessment & Plan (1) Infection of left knee: POD #1, Left knee arthroscopic I&D Ice/ elevate as needed Weight bear as tolerated. Pain control Gram stain- Few WBC's, No organisms Cultures pending. On Vanco and Ceftriaxone. As per medicine/ ID Admission and Anticipated Discharge Date Admission Date: June 03, 2020 Subjective POD#1, Feeling well. Pain controlled well. Denies SOB/ CP/ N/V, no dizzines. Physical Exam Physical Exam: Patient sitting comfortably in her bed. Left knee Dressings/ Drain c/d/i, no drainage. Toes/ ankle mobile. VSS A&Ox3, pleasant. Results & Data ([facility]) Vital Signs (Past 12 Hours) Vital Signs Temp Pulse Resp BP Pulse Ox 06/03/20 07:43 36.6 C 67 14 98/58 L 98 06/03/20 04:20 36.6 C 55 L 16 99/62 L 97 06/03/20 03:15 36.4 C L 58 L 16 107/65 99 06/03/20 02:16 36.7 C 58 L 16 99/57 L 97 06/03/20 01:45 36.6 C 61 18 99/62 L 96 06/03/20 01:10 36.8 C 61 18 101/65 95 06/03/20 01:05 63 16 96/50 L 94 06/03/20 00:55 36.5 C 60 16 99/58 L 95 06/03/20 00:45 70 16 99/59 L 96 06/03/20 00:35 36.5 C 69 18 112/66 96 06/03/20 00:25 80 18 103/68 99 06/03/20 00:15 36.5 C 78 18 116/66 100 06/02/20 22:06 78 16 110/62 98
[2020-06-03] MEDS: IBUPROFEN 200 MG TAB PO PRN ×2 (11:31→22:17)
--- NOTE | 2020-06-03 12:05 | Hospitalist Progress Note ---
Date of Service June 03, 2020 Assessment & Plan (1) Infection of left knee: possible Septic Arthritis vs. Lyme Arthritis -- Lyme screen: Positive -- s/p Arthrocentesis at the ER culture: pending -- s/p I&D 9820 cultures: pending - Blood cultures: pending -- depending on cultures, will need at least Doxycycline 100mg BID x 1 month for possible Lyme Arthritis Thank you for this consultation. We will follow the patient with you during their hospital stay. You can reach a [facility] via pager @ [phone]. Admission and Anticipated Discharge Date Admission Date: June 03, 2020 Subjective ff up for left knee septic arthritis, possible Lyme arthritis s/p I&D last night seen resting in bed, not in distress minimal pain over the surgical site no fever/chills so far no chest pain, dyspnea, palpitations, dizziness no other symptoms Review of Systems Review of Systems: All systems reviewed & are unremarkable except as noted in HPI & below Physical Exam Physical Exam: General- oriented x 3, not in distress, speaks in sentences with no effort or accessory muscle use Head- atraumatic Eyes- PERRL, EOMI, anicteric ENT- oropharynx clear Neck- supple, no JVD, no adenopathy, no thyromegaly Lungs- clear to auscultation bilaterally, no rales/wheezes Heart- normal rate, regular rhythm; no murmur, no gallop, no rub appreciated Abdomen- normal bowel sounds, nondistended, soft, nontender, no masses or hepatosplenomegaly Extremities- left knee: heavy dressing in place, (+) hemovac drain, with sanguinous output no pretibial edema, no calf tenderness; peripheral pulses intact Neuro- alert, oriented x 3; CN 2-12 grossly intact; motor 5/5 bilaterally;sensation 100% on all extremities; no other gross focal neurologic deficits Skin- warm & dry Results & Data Results & Data ([facility]) Vital Signs (Past 12 Hours) Vital Signs Temp Pulse Resp BP Pulse Ox 06/03/20 11:12 36.6 C 64 16 108/69 98 06/03/20 07:43 36.6 C 67 14 98/58 L 98 06/03/20 04:20 36.6 C 55 L 16 99/62 L 97 06/03/20 03:15 36.4 C L 58 L 16 107/65 99 06/03/20 02:16 36.7 C 58 L 16 99/57 L 97 06/03/20 01:45 36.6 C 61 18 99/62 L 96 06/03/20 01:10 36.8 C 61 18 101/65 95 06/03/20 01:05 63 16 96/50 L 94 06/03/20 00:55 36.5 C 60 16 99/58 L 95 06/03/20 00:45 70 16 99/59 L 96 06/03/20 00:35 36.5 C 69 18 112/66 96 06/03/20 00:25 80 18 103/68 99 06/03/20 00:15 36.5 C 78 18 116/66 100 Laboratory Results Laboratory Results - last 24 hr 06/02/20 06/02/20 06/02/20 19:00 19:00 20:41 WBC 4.43 L RBC 3.50 L Hgb 10.9 L Hct 33.2 L MCV 94.9 MCH 31.1 MCHC 32.8 RDW Std Deviation 40.5 RDW Coeff of Boo 11.9 Plt Count 246 MPV 9.8 Immature Gran % (Auto) 0.2 Neut % (Auto) 67.9 Lymph % (Auto) 18.3 Barron % (Auto) 11.1 Eos % (Auto) 2.3 Baso % (Auto) 0.2 Neut # (Auto) 3.01 Lymph # (Auto) 0.81 L Barron # (Auto) 0.49 Eos # (Auto) 0.10 Baso # (Auto) 0.01 Immature Gran # (Auto) 0.01 ESR Sodium Potassium Chloride Carbon Dioxide Anion Gap BUN Creatinine Est Cr Clr Drug Dosing Est GFR ( Amer) Est GFR (Non-Af Amer) BUN/Creatinine Ratio Glucose Calcium Total Bilirubin AST ALT Alkaline Phosphatase Total Protein Albumin Globulin Albumin/Globulin Ratio Urine Test Fld Lyme DNA (PCR) Pending Synovial Source KNEE Synovial Color YELLOW Synovial Appearance CLOUDY Synovial WBC 97290 H Synovial RBC 4000 Synovial Polynuclear % 96.5 Synovial Mononuclear % 3.5 Synovial Specific Grav 1.030 Synovial Crystals Synovial Glucose 41 Synovial Total Protein 5 Synovial Uric Acid 2.1 Lyme Specimen Source Pending Lyme Disease IgG Ab Lyme IgG (Western Blot) Lyme IgG 18 kDa Band Lyme IgG 23 kDa Band Lyme IgG 28 kDa Band Lyme IgG 30 kDa Band Lyme IgG 39 kDa Band Lyme IgG 41 kDa Band Lyme IgG 45 kDa Band Lyme IgG 58 kDa Band Lyme IgG 66 kDa Band Lyme IgG 93 kDa Band Lyme IgM Ab (WB) Lyme Disease IgM Ab Lyme IgM 23 kDa Band Lyme IgM 39 kDa Band Lyme IgM 41 kDa Band COVID-19 Eval Order SARS-CoV-2, RNA, NAAT 06/02/20 06/02/20 06/02/20 20:41 20:41 20:41 WBC RBC Hgb Hct MCV MCH MCHC RDW Std Deviation RDW Coeff of Boo Plt Count MPV Immature Gran % (Auto) Neut % (Auto) Lymph % (Auto) Barron % (Auto) Eos % (Auto) Baso % (Auto) Neut # (Auto) Lymph # (Auto) Barron # (Auto) Eos # (Auto) Baso # (Auto) Immature Gran # (Auto) ESR 72 H Sodium 138 Potassium 3.8 Chloride 104 Carbon Dioxide 27 Anion Gap 8.0 BUN 9 Creatinine 0.62 Est Cr Clr Drug Dosing 146.1 Est GFR ( Amer) 142.2 Est GFR (Non-Af Amer) 122.7 BUN/Creatinine Ratio 14.4 Glucose 100 H Calcium 9.5 Total Bilirubin 0.3 AST 21 ALT 27 Alkaline Phosphatase 47 Total Protein 7.1 Albumin 2.9 L Globulin 4.2 H Albumin/Globulin Ratio 0.7 L Urine Test Fld Lyme DNA (PCR) Synovial Source Synovial Color Synovial Appearance Synovial WBC Synovial RBC Synovial Polynuclear % Synovial Mononuclear % Synovial Specific Grav Synovial Crystals Synovial Glucose Synovial Total Protein Synovial Uric Acid Lyme Specimen Source Lyme Disease IgG Ab Positive A Lyme IgG (Western Blot) Lyme IgG 18 kDa Band Lyme IgG 23 kDa Band Lyme IgG 28 kDa Band Lyme IgG 30 kDa Band Lyme IgG 39 kDa Band Lyme IgG 41 kDa Band Lyme IgG 45 kDa Band Lyme IgG 58 kDa Band Lyme IgG 66 kDa Band Lyme IgG 93 kDa Band Lyme IgM Ab (WB) Lyme Disease IgM Ab Positive A Lyme IgM 23 kDa Band Lyme IgM 39 kDa Band Lyme IgM 41 kDa Band COVID-19 Eval Order SARS-CoV-2, RNA, NAAT 06/02/20 06/02/20 06/02/20 20:41 21:24 21:24 WBC RBC Hgb Hct MCV MCH MCHC RDW Std Deviation RDW Coeff of Boo Plt Count MPV Immature Gran % (Auto) Neut % (Auto) Lymph % (Auto) Barron % (Auto) Eos % (Auto) Baso % (Auto) Neut # (Auto) Lymph # (Auto) Barron # (Auto) Eos # (Auto) Baso # (Auto) Immature Gran # (Auto) ESR Sodium Potassium Chloride Carbon Dioxide Anion Gap BUN Creatinine Est Cr Clr Drug Dosing Est GFR ( Amer) Est GFR (Non-Af Amer) BUN/Creatinine Ratio Glucose Calcium Total Bilirubin AST ALT Alkaline Phosphatase Total Protein Albumin Globulin Albumin/Globulin Ratio Urine Test Fld Lyme DNA (PCR) Synovial Source Synovial Color Synovial Appearance Synovial WBC Synovial RBC Synovial Polynuclear % Synovial Mononuclear % Synovial Specific Grav Synovial Crystals Synovial Glucose Synovial Total Protein Synovial Uric Acid Lyme Specimen Source Lyme Disease IgG Ab Lyme IgG (Western Blot) Pending Lyme IgG 18 kDa Band Pending Lyme IgG 23 kDa Band Pending Lyme IgG 28 kDa Band Pending Lyme IgG 30 kDa Band Pending Lyme IgG 39 kDa Band Pending Lyme IgG 41 kDa Band Pending Lyme IgG 45 kDa Band Pending Lyme IgG 58 kDa Band Pending Lyme IgG 66 kDa Band Pending Lyme IgG 93 kDa Band Pending Lyme IgM Ab (WB) Pending Lyme Disease IgM Ab Lyme IgM 23 kDa Band Pending Lyme IgM 39 kDa Band Pending Lyme IgM 41 kDa Band Pending COVID-19 Eval Order Covid19 [facility] SARS-CoV-2, RNA, NAAT NEGATIVE 06/02/20 06/03/20 06/03/20 22:43 00:25 05:56 WBC 2.24 L RBC 3.47 L Hgb 10.9 L Hct 32.9 L MCV 94.8 MCH 31.4 MCHC 33.1 RDW Std Deviation 40.7 RDW Coeff of Boo 11.9 Plt Count 212 MPV 10.1 Immature Gran % (Auto) Neut % (Auto) Lymph % (Auto) Barron % (Auto) Eos % (Auto) Baso % (Auto) Neut # (Auto) Lymph # (Auto) Barron # (Auto) Eos # (Auto) Baso # (Auto) Immature Gran # (Auto) ESR Sodium Potassium Chloride Carbon Dioxide Anion Gap BUN Creatinine Est Cr Clr Drug Dosing Est GFR ( Amer) Est GFR (Non-Af Amer) BUN/Creatinine Ratio Glucose Calcium Total Bilirubin AST ALT Alkaline Phosphatase Total Protein Albumin Globulin Albumin/Globulin Ratio Urine Test Negative Fld Lyme DNA (PCR) Synovial Source KNEE Synovial Color YELLOW Synovial Appearance CLOUDY Synovial WBC 662741 H Synovial RBC 74933 Synovial Polynuclear % 96.7 Synovial Mononuclear % 3.3 Synovial Specific Grav Synovial Crystals Synovial Glucose Synovial Total Protein Synovial Uric Acid Lyme Specimen Source Lyme Disease IgG Ab Lyme IgG (Western Blot) Lyme IgG 18 kDa Band Lyme IgG 23 kDa Band Lyme IgG 28 kDa Band Lyme IgG 30 kDa Band Lyme IgG 39 kDa Band Lyme IgG 41 kDa Band Lyme IgG 45 kDa Band Lyme IgG 58 kDa Band Lyme IgG 66 kDa Band Lyme IgG 93 kDa Band Lyme IgM Ab (WB) Lyme Disease IgM Ab Lyme IgM 23 kDa Band Lyme IgM 39 kDa Band Lyme IgM 41 kDa Band COVID-19 Eval Order SARS-CoV-2, RNA, NAAT 06/03/20 05:56 WBC RBC Hgb Hct MCV MCH MCHC RDW Std Deviation RDW Coeff of Boo Plt Count MPV Immature Gran % (Auto) Neut % (Auto) Lymph % (Auto) Barron % (Auto) Eos % (Auto) Baso % (Auto) Neut # (Auto) Lymph # (Auto) Barron # (Auto) Eos # (Auto) Baso # (Auto) Immature Gran # (Auto) ESR Sodium 140 Potassium 4.5 D Chloride 109 H Carbon Dioxide 26 Anion Gap 5.0 BUN 11 Creatinine 0.50 L Est Cr Clr Drug Dosing 167.4 Est GFR ( Amer) > 150.0 Est GFR (Non-Af Amer) 131.7 BUN/Creatinine Ratio 21.4 H Glucose 147 H Calcium 8.6 Total Bilirubin AST ALT Alkaline Phosphatase Total Protein Albumin Globulin Albumin/Globulin Ratio Urine Test Fld Lyme DNA (PCR) Synovial Source Synovial Color Synovial Appearance Synovial WBC Synovial RBC Synovial Polynuclear % Synovial Mononuclear % Synovial Specific Grav Synovial Crystals Synovial Glucose Synovial Total Protein Synovial Uric Acid Lyme Specimen Source Lyme Disease IgG Ab Lyme IgG (Western Blot) Lyme IgG 18 kDa Band Lyme IgG 23 kDa Band Lyme IgG 28 kDa Band Lyme IgG 30 kDa Band Lyme IgG 39 kDa Band Lyme IgG 41 kDa Band Lyme IgG 45 kDa Band Lyme IgG 58 kDa Band Lyme IgG 66 kDa Band Lyme IgG 93 kDa Band Lyme IgM Ab (WB) Lyme Disease IgM Ab Lyme IgM 23 kDa Band Lyme IgM 39 kDa Band Lyme IgM 41 kDa Band COVID-19 Eval Order SARS-CoV-2, RNA, NAAT
[2020-06-03] MEDS ORDERED: cefTRIAXone SODIUM 2,000 MG in DEXTROSE 5% 50 ML IV SCH (20:00)
[2020-06-03] MEDS: OXYCODONE HCL IR 5 MG TAB (IMMEDIATE RELEASE) PO PRN (20:38)
[2020-06-03] MEDS ORDERED: SENNA 8.6 MG TAB PO SCH (21:00)
[2020-06-04] MEDS: OXYCODONE HCL IR 5 MG TAB (IMMEDIATE RELEASE) PO PRN (03:23)
[2020-06-04] MEDS ORDERED: VANCOMYCIN TROUGH ONE (07:30)
[2020-06-04] MEDS: VANCOMYCIN HCL 1,250 MG in SODIUM CHLORIDE 0.9% 250 ML IV SCH (08:19)
[2020-06-04 08:20] LABS: Creatinine Clr Calc Pharmacy 149.5 ml/min; Est GFR (African American) 147.1; Est GFR (Non-African American) 126.9
[2020-06-04] MEDS: MULTIVITAMIN TAB PO SCH (08:32)
[2020-06-04] MEDS: DOCUSATE SODIUM 100 MG CAP PO SCH (08:32)
[2020-06-04] MEDS: LACTOBACILLUS ACIDOPHILUS (FLORANEX) TAB PO SCH ×2 (08:32→12:32)
--- NOTE | 2020-06-04 08:37 | Orthopedic Progress Note ---
Date of Service June 04, 2020 Assessment & Plan (1) Infection of left knee: POD #2, Left knee arthroscopic I&D Ice/ elevate as needed Weight bear as tolerated. Pain control Cultures pending. On Vanco and Ceftriaxone. Case discussed with Dr. Styles this morning. He will be consulting the ID team from [facility] this morning. Plan for dressing change and DC drain. Admission and Anticipated Discharge Date Admission Date: June 03, 2020 Subjective Postop day 2 Patient resting comfortably. States she had a little bit of pain earlier this morning however it has resolved at this point. Denies calf pain. Pain appears to be controlled. Physical Exam Physical Exam: Dressings are clean, dry, and intact. Calves are soft nontender. Neurovascular is intact. Toes are mobile. She has some slight edema of the left ankle compared to the right. Hemovac drain had 0 drainage from the previous shift. Results & Data ([facility]) Vital Signs (Past 12 Hours) Vital Signs Temp Pulse Resp BP Pulse Ox 06/04/20 07:31 36.3 C L 56 L 15 83/42 L 98 06/04/20 03:20 36.4 C L 73 16 106/57 L 98 06/03/20 23:37 36.7 C 51 L 16 101/59 L 100
[2020-06-04] MEDS: IBUPROFEN 200 MG TAB PO PRN (08:42)
--- NOTE | 2020-06-04 09:28 | Pharmacy Report ---
Pharmacy Abx Dose Short Note - Date of Service June 04, 2020 - Assessment & Plan Assessment 29 year old F receiving vancomycin and ceftriaxone for treatment of left knee septic arthritis (vs. lyme arthritis). * Day #2 of antimicrobial therapy * Afebrile. No leukocytosis. Renal function stable. * [facility] Infectious Disease consulted today - will await their recommendations * 9/8 L knee and BCxs have no growth to date; 9/9 L knee cultures are pending Plan Vancomycin * Trough level of 12.8 mcg/mL is slightly subtherapeutic * Change to 1250 mg IV every 6 hours * Goal trough level: 15 to 20 mcg/mL * Trough level ordered for tomorrow morning to reflect steady state levels Pharmacy will continue to follow and will adjust dose/frequency as necessary. Thank you.
[2020-06-04] MEDS ORDERED: SODIUM CHLORIDE 0.9% 1000ML 1,000 ML IV SCH (09:30)
[2020-06-04 10:05] LABS: Basophils # (auto) 0.02 K/uL (0-0.2); Basophils % (auto) 0.5 %; Eosinophils # (auto) 0.19 K/uL (0-0.5); Hematocrit (blood only) 30.4 % (37-47); Immature Granulocytes # (auto) 0.01 K/uL (0.00-0.02); Immature Granulocytes % (auto) 0.3 %; Lymphocytes # (auto) 1.85 K/uL (1.2-3.4); Lymphocytes % (auto) 48.6 %; Mean Corpuscular Hemoglobin 31.6 pg (25-34); Mean Corpuscular Hgb Conc 32.9 g/dL (32-36); Mean Corpuscular Volume 96.2 fL (80-100); Mean Platelet Volume 10.2 fL (7.4-10.4); Monocytes # (auto) 0.42 K/uL (0.11-0.59); Neutrophils # (auto) 1.32 K/uL (1.4-6.5); Neutrophils % (auto) 34.6 %; Platelet Count 234 K/uL (130-400); RDW Coefficient of Variation 11.8 % (11.5-14.5); RDW Standard Deviation 42.3 fL (36.4-46.3); Red Blood Count 3.16 M/uL (4.2-5.4); White Blood Count 3.81 K/uL (4.8-10.8)
[2020-06-04 10:19] LABS: BUN Creatinine Ratio 25.6 (10-20); Calcium 8.4 mg/dl (8.5-10.1); Creatinine Clr Calc Pharmacy 139.5 ml/min; Est GFR (African American) 143.8; Potassium 4.2 mmol/L (3.5-5.1)
[2020-06-04] MEDS: KETOROLAC TROMETHAMINE 15 MG/ML VIAL IV PRN (10:19)
[2020-06-04] MEDS ORDERED: VANCOMYCIN HCL 1,250 MG in SODIUM CHLORIDE 0.9% 250 ML IV SCH (14:00)
[2020-06-04] MEDS ORDERED: FLUCONAZOLE 50 MG TAB PO ONE (14:16)
--- NOTE | 2020-06-04 18:34 | Hospitalist Progress Note ---
Date of Service June 04, 2020 Assessment & Plan (1) Infection of left knee: Likely secondary to Lyme arthritis [facility] consulted -- Lyme screen: Positive -- s/p Arthrocentesis at the ER culture: pending -- s/p I&D 9820 cultures: pending - Blood cultures: pending --Dr. Gonzalez, [facility] consulted, recommends doxycycline 100 mg twice daily x28 days Follow-up with [facility] in 2 weeks --Discussed with Ortho service --Plan of care discussed with patient as well Thank you for this consultation. We will follow the patient with you during their hospital stay. You can reach a member of the [facility] Hospitalist Team 17/04 via pager @ [phone]. Admission and Anticipated Discharge Date Admission Date: June 03, 2020 Subjective Follow-up for possible septic arthritis versus Lyme arthritis Seen resting in bed, comfortable not in distress Good spirits States that she feels much better overall No pain over the left knee and leg No shortness of breath, chest pain, palpitations, dizziness No other arthralgias No fevers or chills No confusion, cranial neuropathies signs, carditis No other symptoms States that she is ready and would like to go home Review of Systems Review of Systems: All systems reviewed & are unremarkable except as noted in HPI & below Physical Exam Physical Exam: General- oriented x 3, not in distress, speaks in sentences with no effort or accessory muscle use Eyes- anicteric Neck- no JVD Lungs- clear breath sounds bilaterally, no rales/wheezes Heart- normal rate, regular rhythm; no murmurs Abdomen- normal bowel sounds, nondistended, soft, nontender Extremities- Left lower extremity, no edema, heavy dressing over the left knee no pretibial edema, no calf tenderness Neuro- alert, oriented x 3; no gross focal neurologic deficits Skin- warm & dry Results & Data Results & Data ([facility]) Vital Signs (Past 12 Hours) Vital Signs Temp Pulse Resp BP Pulse Ox 06/04/20 14:33 36.3 C L 56 L 15 105/57 L 98 06/04/20 10:45 105/57 L 06/04/20 07:31 36.3 C L 56 L 15 83/42 L 98
[2020-06-05] MEDS ORDERED: VANCOMYCIN TROUGH ONE (07:30)
[2020-06-06 02:21] LABS: 18KDIGG Band REACTIVE; 23KDIGG Band NON-REACTIVE; 23KDIGM Band REACTIVE; 28KDIGG Band REACTIVE; 30KDIGG Band REACTIVE; 39KDIGG Band REACTIVE; 39KDIGM Band REACTIVE; 41KDIGG Band REACTIVE; 41KDIGM Band NON-REACTIVE; 45KDIGG Band REACTIVE; 58KDIGG Band REACTIVE; 66KDIGG Band REACTIVE; 93KDIGG Band REACTIVE; Lyme Antibodies, WB IgG POSITIVE (NEGATIVE); Lyme Antibodies, WB IgM POSITIVE (NEGATIVE)
[2020-06-06 11:41] LABS: Lyme DNA PCR CSF or Synovial Detected (Not Detected); Lyme DNA Source Synovial Fluid
--- NOTE | 2020-06-08 15:29 | Discharge Summary ---
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 She started having pain and swelling in the left knee on Monday. She is seen in urgent care. She has a history of a tick bite on the lateral aspect of this knee about 5 months ago. A Lyme titer was obtained and she was started on doxycycline. She continued to have pain and swelling in the knee. She has developed fevers and chills. The knee is now red hot and swollen. The knee was aspirated by Dr. Vick for yellow cloudy fluid. The analysis demonstrates 92,000 white blood cells. She has pain with ambulation and pain with range of motion. Admission Exam Per Admitting Provider Physical Exam Constitutional: WD/WN, vitals as above Neck: normal visual inspection Respiratory: normal respiratory effort Cardiovascular: RRR, no murmur, no edema Musculoskeletal: Left lower extremity: There is a significant effusion in the left knee. She holds it in a slightly flexed position. There is significant erythema and warmth to the knee. She can flex it to approximately 80 degrees but limited by pain and swelling. Tender to palpation throughout the knee. No tenderness palpation of calf. No pain with range of motion at the hip. Light touch sensation is intact distally 2+ dorsalis pedis pulse. Motor function is intact distally Principal Diagnosis Septic left knee secondary to Lyme disease Discharge Data Allergies Allergy/AdvReac Type Severity Reaction Status Date / Time No Known Allergies Allergy Verified 06/06/20 19:15 Consultations 06/02/20 20:49 ED Decision to Admit Stat 06/03/20 00:04 Consult Case Management - Discharge Planning Routine Consult Hospitalist Routine 06/04/20 08:20 Consult Infectious Diseases Routine Procedures Performed Operation Date: 06/02/20 21:30 Actual Procedures p Left Knee Arthroscopy Irrigation and Debridement(Left) - Jose Arreguin MD Hospital Course (1) Septic arthritis of knee: Patient was admitted on the above-noted date and underwent the above-noted surgery of which she tolerated well. Postoperatively a [facility] hospitalist consult was placed. Multiple cultures were taken during the time of the operation and the patient also had a Lyme test ordered which was positive. A Western blot was then sent. On her first postoperative day she was feeling well. Denies shortness of breath chest pain or nausea vomiting. Dressings were intact drain was in place toes are mobile bones are stable Gram stain was showing few WBCs and no organisms. Cultures were pending and she was continued on vancomycin and ceftriaxone as per medicine service and their ID team. Vital signs remained stable. By her second postoperative day, medicine service had contacted the ID team who interviewed the patient. Plans were for doxycycline 100 mg p.o. twice daily for 4 weeks for presumed Lyme arthritis. Cultures remain negative. She was resting comfortably and stated she had a little bit of pain earlier that morning however it had resolved. She denies any calf pain. Her dressings were clean, dry, and intact. Calves are soft nontender. Neurovascular was intact. Toes are mobile. Hemovac drain had 0 drainage from the previous shift. She was otherwise remaining medically stable and orthopedically stable. Dressings were ordered discontinued as well as was the Hemovac drain. Plans were to follow-up with her primary care physician. Of note Western blot test did come back positive. Cultures were all negative. She was discharged home on 06/04/2020. Total Time Total Time Spent Total Time Spent (In Minutes): 5 Discharge Plan Discharge Items Patient Disposition: Home - Self-Care Reason For Visit: POST SURGICAL CARE Discharge Diagnosis: Left knee I&D, labs indicating Lymes Activity: Per Instructions section Non-emergency contact: Primary Care Provider and Surgeon Call non-emergency contact if: you have any medication questions, your symptoms worsen, your pain is not controlled, your pain is concerning for you, your temperature is above 101, your wound has increased redness and your wound has increased drainage Follow-up/Referrals: Sundeep Stevens III, CRNP [Primary Care Provider] - Diet: Regular Addtl Attending Provider Instructions: Keep incision clean dry and intact with daily dressing changes. May shower post op day #2, do not submerge incisions underwater. Ice/ elevate as needed. Weight bear as tolerated. Pain meds as needed. Follow up with Dr. Arreguin 10-12 days post op at [facility], call [phone] for appt. Follow up with Infectious Disease 2 weeks post op, Dr. Lias Wong, call . Pending Studies at Discharge: No Stand-Alone Forms: My [facility] Hotreader, Smoking Cessation Medications and DC Order Prescriptions: New tramadol 50 mg tablet 50 mg PO Q4H Qty: 30 RF: 0 doxycycline hyclate 100 mg capsule 100 mg PO BID 28 Days Qty: 56 RF: 0 Continued vitamin A 8,000 unit Capsule 0 unit PO 3XWK RF: 0 ibuprofen 200 mg Tablet 400 mg PO Q6H PRN (Reason: Pain) RF: 0 echinacea 125 mg Capsule 0 mg PO Q OTHER DAY RF: 0 No Action astragalus root 250 mg capsule 0 mg PO DAILY RF: 0 vitamin E 50 unit Capsule 0 unit PO .TODAY RF: 0 ginseng root 250 mg Capsule 0 mg PO .TODAY RF: 0 turmeric 400 mg Capsule 0 mg PO UD PRN (Reason: Inflammation) RF: 0 Chaga 1 dose PO 3XWK RF: 0 Xarelto 10 mg tablet 10 mg PO DAILY Qty: 45 RF: 0 Discharge Orders: Discharge Order (Routine); Ordered 06/04/20 Ordered By: Mikel Munoz Admission Data Admit Date/Time: 06/03/20 00:04 Attending Provider: Jose Arreguin Admit Provider: Jose Arreguin Primary Care Provider: Sundeep Stevens III Other Providers: Jose Arreguin ; Hernan Styles ; Cam Lim ; Edith Sullivan ; Jsoe Smith I. ; Owen Gonzalez II ; Minda Casey ; Mikel Tripathi Other Interventions: Discharge Summary Assessment (RN) Last Done: 06/04/20 14:33
== END 2020-06-04 14:51 | disposition home or self-care (01) | DRG 855 ==
LOC: MERGE 18:05 → ED 18:05 → EDBD 18:05 → ASU 22:07 → 3E 06-03 00:04
DX: A69.23 Arthritis due to Lyme disease